=== PATIENT | female | born 1950 | race Caucasian/White ===

== ENCOUNTER 2019-05-06 17:18 | Emergency (ER) | payer OTHER ==
[2019-05-06] MEDS ORDERED: DOXYcycline CAP(*) 100 MG PO ONE (18:03)
--- NOTE | 2019-05-06 18:05 | ED ---
Skin Complaint - HPI Summary HPI Summary: 68-year-old female presents with tick bite today. States she is unsure how long the tick has been there. States she is unable to reach the tick to remove it. she has erythema around where the tick is present. She has no allergies to doxycycline. She has not tried to remove the tick. - History of Current Complaint Chief Complaint: EDGeneral Time Seen by Provider: 05/06/19 17:33 Stated Complaint: TICK IN LEFT LEG PER PT Pain Intensity: 0 - Allergy/Home Medications Allergies/Adverse Reactions: Allergies Allergy/AdvReac Type Severity Reaction Status Date / Time albuterol Allergy Coughing Verified 05/06/19 17:24 Home Medications: Home Medications Ramipril 1 tab PO DAILY 05/06/19 [History Confirmed 05/06/19] PMH/Surg Hx/FS Hx/Imm Hx Endocrine/Hematology History: Denies: Hx Anticoagulant Therapy Cardiovascular History: Denies: Hx Pacemaker/ICD Musculoskeletal History: Denies: Hx Osteoporosis - Cancer History Hx Chemotherapy: No Hx Radiation Therapy: No Infectious Disease History: No Infectious Disease History: Denies: Traveled Outside the [place] in Last 30 Days - Family History Known Family History: Positive: Non-Contributory - Social History Substance Use Type: Reports: None Smoking Status (MU): Never Smoked Tobacco Review of Systems Negative: Fever Negative: Chest Pain Negative: Shortness Of Breath Positive: Rash All Other Systems Reviewed And Are Negative: Yes Physical Exam Triage Information Reviewed: Yes Vital Signs On Initial Exam: Initial Vitals Temp Pulse Resp BP Pulse Ox 98.2 F 74 16 157/78 97 05/06/19 17:22 05/06/19 17:22 05/06/19 17:22 05/06/19 17:22 05/06/19 17:22 Vital Signs Reviewed: Yes Appearance: Positive: Well-Appearing Skin: Positive: Warm, Dry, Other - tick bite presents on left leg with surrouding erythema Head/Face: Positive: Normal Head/Face Inspection Eyes: Positive: Normal, Conjunctiva Clear ENT: Positive: Pharynx normal Respiratory/Lung Sounds: Positive: Clear to Auscultation, Breath Sounds Present Cardiovascular: Positive: Normal, RRR Musculoskeletal: Positive: Normal Neurological: Positive: Normal Psychiatric: Positive: Normal Diagnostics - Vital Signs Vital Signs Temp Pulse Resp BP Pulse Ox 05/06/19 17:22 98.2 F 74 16 157/78 97 - Laboratory Lab Statement: Any lab studies that have been ordered have been reviewed, and results considered in the medical decision making process. Course/Dx - Course Course Of Treatment: 68-year-old female presents with tick bite today. States she is unsure how long the tick has been there. States she is unable to reach the tick to remove it. she has erythema around where the tick is present. She has no allergies to doxycycline. She has not tried to remove the tick. - Differential Diagnoses - Skin Complaint Differential Diagnoses: Cellulitis, Other - tick bite, lyme - Diagnoses Provider Diagnoses: Tick bite Discharge - Sign-Out/Discharge Documenting (check all that apply): Patient Departure Patient Received Moderate/Deep Sedation with Procedure: No - Discharge Plan Condition: Good Disposition: HOME Patient Education Materials: Tick Bite (ED) Referrals: Renetta Zamorano MD [Primary Care Provider] - Additional Instructions: You have been prophylactically treated for Lyme disease Return to ED if develop any rash or signs of infection - Billing Disposition and Condition Condition: GOOD Disposition: Home
[2019-05-06 18:39] VITALS: BP 133/88
== END 2019-05-06 18:37 | disposition home or self-care (01) ==
LOC: ED 17:18
DX: S70.362A Insect bite (nonvenomous), left thigh, initial encounter (principal); W57.XXXA Bitten or stung by nonvenomous insect and other nonvenomous arthropods, initial encounter; Y92.9 Unspecified place or not applicable; Z88.8 Allergy status to other drugs, medicaments and biological substances
CPT/HCPCS: 99282; A9270-GY

== ENCOUNTER 2019-10-13 13:51 | Observation (INO) | payer MEDICARE ==
[2019-10-13] MEDS ORDERED: NS 0.9% 1000 ML** 1,000 ML IV ONE (14:02)
--- NOTE | 2019-10-13 14:06 | ED ---
Neurological HPI - HPI Summary HPI Summary: Paty monahan was called at 13:58, and pt was seen at 13:58. This patient is a 69 year old F presenting to [facility] with a chief complaint of a sensation on right side of face since 1200. She describes the sensation as numbness and tingling on the right side of the face. Pt has PMHx of HTN and a fib. Pt was not put on any medication for a fib. Pt took 81mg aspirin today. - History of Current Complaint Chief Complaint: EDNeurologicalDeficit Stated Complaint: "HEAD FEELS FUNNY " PER PT Time Seen by Provider: 10/13/19 13:58 Last Known Well Date: 12:00 Hx Obtained From: Patient Onset/Duration: Sudden Onset, Started hours ago, Still Present Timing: Constant Neurological Deficit Location: Facial Pain Intensity: 0 Pain Scale Used: 0-10 Numeric Character: Other: - sensation on right side of head Aggravating: Nothing Alleviating: Nothing - Allergy/Home Medications Allergies/Adverse Reactions: Allergies Allergy/AdvReac Type Severity Reaction Status Date / Time albuterol Allergy Coughing Verified 05/06/19 17:24 Home Medications: Home Medications Cholecalciferol TAB* [Vitamin D TAB*] 800 unit PO DAILY 10/13/19 [History Confirmed 10/13/19] Cyanocobalamin TAB* [Vitamin B12 TAB*] 500 mcg PO DAILY 10/13/19 [History Confirmed 10/13/19] PMH/Surg Hx/FS Hx/Imm Hx Endocrine/Hematology History: Denies: Hx Anticoagulant Therapy Cardiovascular History: Reports: Hx Atrial Fibrillation, Hx Hypertension Denies: Hx Pacemaker/ICD Musculoskeletal History: Denies: Hx Osteoporosis - Cancer History Hx Chemotherapy: No Hx Radiation Therapy: No Infectious Disease History: No Infectious Disease History: Denies: Traveled Outside the [place] in Last 30 Days - Family History Known Family History: Positive: Hypertension - Social History Alcohol Use: Daily Substance Use Type: Reports: None Smoking Status (MU): Never Smoked Tobacco Review of Systems Negative: Fever Positive: Numbness - right side of face All Other Systems Reviewed And Are Negative: Yes Physical Exam - Summary Physical Exam Summary: NEURO EXAM VITAL SIGNS: Reviewed. GENERAL: Patient is a well-developed and nourished female who is lying comfortable in the stretcher. Patient is not in any acute respiratory distress. HEAD AND FACE: No signs of trauma. No ecchymosis, hematomas or skull depressions. No sinus tenderness. EYES: PERRLA, EOMI x 2, No injected conjunctiva, no nystagmus. No photophobia. EARS: Hearing grossly intact. Ear canals and tympanic membranes are within normal limits. MOUTH: Oropharynx within normal limits. NECK: Supple, trachea is midline, no adenopathy, no JVD, no carotid bruit, no c- spine tenderness, neck with full ROM. No meningeal signs, no Kernig's or brudzinskis signs. CHEST: Symmetric, no tenderness at palpation. LUNGS: Clear to auscultation bilaterally. No wheezing or crackles. CVS: Regular rate and rhythm, S1 and S2 present, no murmurs or gallops appreciated. ABDOMEN: Soft, non-tender. No signs of distention. No rebound, no guarding, and no masses palpated. Bowel sounds are normal. EXTREMITIES: FROM in all major joints, no edema, no cyanosis or clubbing. NEURO: Decreased sensation on right side of the face. Alert and oriented x 3. No acute neurological deficits. Speech is normal and follows commands. SKIN: Dry and warm. GCS: 15 Triage Information Reviewed: Yes Vital Signs On Initial Exam: Initial Vitals Temp Pulse Resp BP Pulse Ox 98.2 F 70 16 214/107 96 10/13/19 13:53 10/13/19 13:53 10/13/19 13:53 10/13/19 13:53 10/13/19 13:53 Vital Signs Reviewed: Yes - Jennifer Coma Scale Best Eye Response: 4 - Spontaneous Best Motor Response: 6 - Obeys Commands Best Verbal Response: 5 - Oriented Coma Scale Total: 15 Procedures - Sedation Patient Received Moderate/Deep Sedation with Procedure: No Diagnostics - Vital Signs Vital Signs Temp Pulse Resp BP Pulse Ox 10/13/19 13:53 98.2 F 70 16 214/107 96 - Laboratory Result Diagrams: 10/13/19 14:20 10/13/19 14:20 Lab Statement: Any lab studies that have been ordered have been reviewed, and results considered in the medical decision making process. - Radiology CXR Radiology Interpretation Completed By: Radiologist Summary of Radiographic Findings: CXR reveals, per radiologist, IMPRESSION: No radiographic evidence for acute cardiopulmonary abnormality on this portable chest x-ray. ED physician has reviewed this radiology report. - CT Brain CT CT Interpretation Completed By: Radiologist Summary of CT Findings: Brain CT reveals, per radiologist, IMPRESSION: Normal CT of the brain. ED physician has reviewed this radiology report. - EKG 15:28 Cardiac Rate: Bradycardia EKG Rhythm: Sinus Rhythm Summary of EKG Findings: An EKG at 15:28 reveals sinus bradycardia rhythm 57. No ST-elevations ED physician has interpreted this EKG. NIH Scale - NIH Scale Level of Consciousness: Alert/Keenly Responsive Ask Patient the Month and His/Her Age: Both Correct Ask Pt to Open/Close Eyes and Feeder Operator Automatic/Release Non-Paretic Hand: Both Correctly Best Gaze (Only Horizontal Eye Movement): Normal Visual Field Testing: No Visual Loss Facial Paresis-Pt to Smile & Close Eyes or Grimace Symmetry: Normal/Symmetrical Motor Function - Right Arm: No Drift-Holds 10 Seconds Motor Function - Left Arm: No Drift-Holds 10 Seconds Motor Function - Right Leg: No Drift-Holds 10 Seconds Motor Function - Left Leg: No Drift-Holds 10 Seconds Limb Ataxia-Must be out of Proportion to Weakness Present: Absent Sensory (Use Pinprick to Test Arms/Legs/Trunk/Face): Pinprick Less on Affected Best Language (Describe Picture, Name Items): No Aphasia Dysarthria (Read Several Words): Normal Extinction and Inattention: No Abnormality Total Score: 1 Re-Evaluation - Re-Evaluation First Eval Re-Evaluation Time: 02:15 Comment: Telestroke consult machine does not work Second Eval Re-Evaluation Time: 15:25 Comment: The patient is hemodynamically stable alert and oriented 3. Course/Dx - Course Assessment/Plan: This patient is a 69-year-old female who presents to the emergency department with a chief complaint of right facial numbness and tingling since 1200. Patient reports that she has a history of hypertension and atrial fibrillation and she is not taking any blood thinners or aspirin. However she took one aspirin 81 mg before she came to the emergency room. Paty chamberlain was called by triage. NIH score is equal to 1. Discussed the case with Dr. Hampton neurologist from [facility], and she recommends no TPA this point since the NIH score is only equal to 1. However she will do the Telestroke at this time. Head CT impression: Negative for acute pathology. After Dr. Hampton completed her assessment she recommends no TPA, and no CTA at this time. She doesnt think that the patient has an LVO. She does recommend for the patient to be admitted to the hospital services and to perform a non emergent MRI, carotid ultrasound, echocardiogram, lipid profile in the morning and to give a complete dose of aspirin. Therefore I discussed my physical exam and findings with Dr. Willis who accepted the patient for admission. The patient is hemodynamically stable alert and oriented 3. - Diagnoses Provider Diagnoses: Transient ischemic attack During the Visit The Following Alert/Code Occurred: Code Monahan - 13:58 - Physician Notifications Discussed Care Of Patient With: Dr. Hampton Time Discussed With Above Provider: 14:04 Instructed by Provider To: Other - Spoke with transfer center; 14:08 Dr. Hampton , from stroke services, b/c NIH score is 1 she would not recommend a TPA at this time, but she would do the telestroke. 14:18 Dr Morgan reports Head CT is negative; 15:17 Dr Hampton, recommends no TPA, recommend a MRI, Ultra Sound, ECHO, but no CTA since she doesnt think pt has an LVO; 15:[address] Willis who accepts pt for admission. Discharge ED - Sign-Out/Discharge Documenting (check all that apply): Patient Departure - Admit - Discharge Plan Condition: Stable Disposition: ADMITTED TO [facility] - Billing Disposition and Condition Condition: STABLE Disposition: Admitted to [facility] - Attestation Statements Document Initiated by Shrutiibe: Yes Documenting Scribe: Renae Do Provider For Whom Verónica is Documenting (Include Credential): Oswaldo Velazquez MD Scribe Attestation: Renae Miller scribed for Oswaldo Velazquez MD on 10/13/19 at 1835. Scribe Documentation Reviewed: Yes Provider Attestation: The documentation as recorded by the Renae florez accurately reflects the service I personally performed and the decisions made by me, Oswaldo Velazquez MD Status of Scribe Document: Viewed
[2019-10-13 14:41] LABS: ABS Lymphocytes 1.7 10^3/ul (1.0-4.8); ABS Monocytes 0.3 10^3/ul (0-0.8); ABS Neutrophils 2.9 10^3/ul (1.5-7.7); Eosinophil % 0.4 %; Hematocrit 44 % (35-47); Hemoglobin 14.8 g/dL (12.0-16.0); Lymphocyte % 35.1 %; Mean Corpuscular HGB Conc 34 g/dL (31-36); Mean Corpuscular Hemoglobin 32 pg (27-31); Mean Corpuscular Volume 93 fL (80-97); Mean Platelet Volume 7.7 fL (7.4-10.4); Nucleated Red Blood Cells % 0.1; Platelet Count 183 10^3/uL (150-450); Red Blood Count 4.69 10^6 /uL (3.70-4.87); Red Cell Distribution Width 13 % (10-15)
[2019-10-13 15:00] LABS: Activated Partial Thrombo Time 32.3 seconds (26.0-38.0); INR 0.92 (0.82-1.09)
[2019-10-13 15:24] LABS: Albumin 4.3 g/dL (3.2-5.2); Albumin/Globulin Ratio 1.9 (1-3); BUN/Creatinine Ratio 12.4 (8-20); Calcium 9.4 mg/dL (8.6-10.3); EGFR African American 69.3 (>60); EGFR Non-African American 57.3 (>60); Globulin 2.3 g/dL (2-4); HDL Cholesterol 86.6 mg/dL; Potassium 3.8 mmol/L (3.5-5.0); Total Bilirubin 0.5 mg/dL (0.2-1.0); Total Protein 6.6 g/dL (6.4-8.9)
[2019-10-13] MEDS ORDERED: Aspirin 81 mg CHEW TAB* 81 MG TAB.CHEW PO ONE (15:25)
--- OUTSIDE RECORDS SUMMARY | 2019-10-13 15:40 | XMS REPORT | Continuity of Care Document ---
:1950 External Reference #:[id number] Author Name Patricia Manley O.D. Address [address] [place] [address] Care Team Providers Name Role Phone Kris Cole M.D. - Internal Care Team Information Virtualization Engineer [phone] Medicine Renetta Zamorano MD/FACP - Internal Care Team Information Virtualization Engineer Medicine Problems Active Problems Provider Date Asthma Onset: Nuclear senile cataract Patricia Manley O.D. Onset: 01/03/2017 Myopia Patricia Manley O.D. Onset: 01/03/2017 Regular astigmatism Patricia Manley O.D. Onset: 01/03/2017 Presbyopia Patricia Manley O.D. Onset: 01/03/2017 Tear film insufficiency Patricia Manley O.D. Onset: 09/14/2018 Chalazion Patricia Manley O.D. Onset: 04/04/2019 Social History Type Date Description Comments Sex Unknown ETOH Use Consumes 1-2 glasses of wine per day Tobacco Use Start: Unknown End: Patient is a former smoked in 20s, early Unknown smoker 30s Recreational Drug Use Denies Drug Use Smoking Status Reviewed: 09/14/19 Patient is a former smoked in 20s, early smoker 30s Allergies, Adverse Reactions, Alerts Active Allergies Reaction Severity Comments Date Perfume 01/03/2017 Albuterol Moderate Coughing 09/14/2018 Medications Active Medications SIG Qnty Indications Ordering Provider Date Aspirin Adult Low Dose daily Unknown 81mg Tablets DR Ramipril 1X/Day Unknown 1.25mg Capsules Vitamin D-400 2 Pills 1X/Day Unknown 400Unit Tablets HM Vitamin B12 1X/Day Unknown 500mcg Tablets Magnesium as Needed Unknown 500mg Capsules Naproxen as Needed Unknown 250mg Tablets History Medications Erythromycin apply thin 2tubes H00.14 Patricia Jasso 04/04/2019 - 5mg/GM strip in both Ely Manley 09/13/2019 Ointment eyes and rub into lids every night for 2 weeks Immunizations Description No Information Available Vital Signs Description No Information Available Results Description No Information Available Procedures Date Code Description Status 04/04/2019 66052 Est Patient Intermediate Exam Completed Medical Devices Description No Information Available Encounters Description No Information Available Assessments Date Code Description Provider 09/14/2019 H25.13 Age-related nuclear cataract, bilateral Patricia Manley O.D. 09/14/2019 H04.123 Dry eye syndrome of bilateral lacrimal Patricia Manley O.D. glands 04/04/2019 H00.14 Chalazion left upper eyelid Patricia Manley O.D. Plan of Treatment 09/14/2019 - Patricia Manley O.D.H25.13 Age-related nuclear cataract, bilateralComments:You have been diagnosed with cataracts. If you are happy with your vision as it is now, then we willsee you at your next scheduled appointment. If you feel like your vision is getting worse before your scheduled appointment, please call [facility] at [phone].Follow up:1 Year Follow Up You can expect to have your eyes dilated at your next visit. If Dr. Manley orders any additional testing, it may require extra time. We recommend that you bring sunglasses, as dilation drops often make you light sensitive until they wear off. We always recommend you bring someone to drive you home if you are uncomfortable driving with your eyes dilated. If you have any questions before your next visit, feel free to call our office at .H04.123 Dry eye syndrome of bilateral lacrimal glandsComments:Smoking can increase the risk of developing or worsening any eye related disease, as well as affect your overall health. If you are a smoker, we strongly recommend that you quit.If you are not a smoker, we strongly recommend that you do not start. CONTINUE TO USE ARTIFICIAL TEARS NEEDEDUSE A HOT COMPRESS FOR 5-10 MINUTES Functional Status Description No Information Available Mental Status Description No Information Available Referrals Description No Information Available
--- OUTSIDE RECORDS SUMMARY | 2019-10-13 15:40 | XMS REPORT | Continuity of Care Document ---
:1950 External Reference #:[id number] Author Name Aidan García M.D. (transmitted by agent of provider Krystyna Uribe) Address [facility] [address] [place] [address] Care Team Providers Name Role Phone Patient's Choice Care Team Information Cartridge Filler Unavailable Raine Díaz MD - Internal Care Team Information Cartridge Filler [phone] Medicine Problems Active Problems Provider Date Benign essential hypertension Cristiano Cole M.D.,FACP Onset: 10/06/2007 Mild intermittent asthma Cristiano Cole M.D.,FACP Onset: 02/17/2017 Ex-smoker Cristiano Cole M.D.,FACP Onset: 03/14/2018 Contusion of knee Luis Hopkins MD Onset: 05/22/2019 Social History Type Date Description Comments Sex Unknown Tobacco Use Start: Unknown End: Former Cigarette Smoker Unknown Smoking Status Reviewed: 10/08/19 Former Cigarette Smoker ETOH Use 02/17/2017 Consumes 7 glasses of 7-14 glasses wine per week Tobacco Use Start: 11/28/71 End: Patient is a former about 1/2-1PPD 11/28/91 smoker Recreational Drug Use 02/17/2017 Denies Drug Use Exercise Type/Frequency 02/17/2017 Exercises rarely Allergies, Adverse Reactions, Alerts Active Allergies Reaction Severity Comments Date Albuterol Moderate coughing fits 02/17/2017 Medications Active Medications SIG Qnty Indications Ordering Provider Date Vitamin D 2 by mouth every 90caps Cristiano Cole, 03/14/2018 (Cholecalciferol) day Yevgeniy,FACP 400Unit Capsules Ramipril 1 by mouth every 90caps Cristiano Cole, 08/17/2017 1.25mg day M.D.,FACP Capsules Magnesium 1 by mouth every Unknown 250mg Tablets day prn for cramps Flax Seeds 1 by mouth every Unknown Powder day prn Vitamin B-12 1 by mouth every Unknown 500mcg day Tablets Sub Immunizations CPT Code Status Date Vaccine Reaction Lot # [id number] Given 08/29/2018 Influenza Virus Vaccine, please see attached - Quadrivalent, Split, pt received at pharm Preservative Free 75574 Given 07/18/2018 Zoster (Shingles) Vaccine (HZV), Recombinant, Subunit, Adjuvanted 92856 Given 03/30/2018 Zoster (Shingles) Vaccine (HZV), Recombinant, Subunit, Adjuvanted 22737 Given 08/29/2017 Influenza Virus Vaccine, [id number] Quadrivalent, Split, Preservative Free 68567 Given 05/17/2017 Pneumococcal Conjugate [id number] Vaccine 13 Valent For Intramuscular Use 21796 Given Unknown Influ Virus Vaccine, Quadrivalent, Split Virus, Im Fluzone not PF Vital Signs Date Vital Result Comment 10/08/2019 8:35am Height 61 inches 5'1" Weight 162.00 lb Heart Rate 66 /min BP Systolic Sitting 176 mmHg Rue reg cuff BP Diastolic Sitting 96 mmHg Rue reg cuff BP Systolic Standing 172 mmHg Rue reg cuff BP Diastolic Standing 100 mmHg Rue reg cuff Respiratory Rate 13 /min BMI (Body Mass Index) 30.6 kg/m2 Ejection Fraction 60-65% ECHO 09/05/2019 08/29/2019 1:00pm Height 61 inches 5'1" Weight 165.00 lb without shoes BP Systolic 130 mmHg LA BP Diastolic 60 mmHg LA BP Systolic Sitting 130 mmHg Ra BP Diastolic Sitting 62 mmHg Ra BP Systolic Standing 132 mmHg Ra BP Diastolic Standing 70 mmHg Ra BMI (Body Mass Index) 31.2 kg/m2 Ejection Fraction None Results Test Acquired Date Facility Test Result H/L Range Note Lipid Profile 05/01/2019 [facility] Triglycerides 60 mg/dL 1 (Trig/Chol/HDL) [address] [place] [address] [phone] Cholesterol 280 mg/dL 2 HDL Cholesterol 106.7 mg/dL 3 LDL Cholesterol 161 mg/dL 4 Laboratory test 05/01/2019 [facility] Glucose 100 mg/dL Normal 70-100 finding [address] [facility] [place] [address] [phone] 1 Desirable: <150 Borderline High: 150-199 High: 200-499 Very High: >500 2 Desirable: <200 Borderline High: 200-239 High: >239 3 Low: <40 Desirable: 40-60 High: >60 4 Desirable: <100 Near Optimal: 100-129 Borderline High: 130-159 High: 160-189 Very High: >189 Procedures Date Code Description Status 09/28/2019 02571 Stress Test Completed 09/05/2019 98869 ECHO Transthoracic, Real-Time 2D With Doppler And Completed Color Flow 09/05/2019 35881 ECHO Transthoracic, Real-Time 2D With Doppler And Completed Color Flow 08/29/2019 40693 EKG Tracing & Interpretation Completed 03/21/2018 [id number] Bone Mineral Density Test Completed 06/13/2017 [id number] Colonoscopy Completed 05/20/2017 [id number] Mammogram Completed Medical Devices Description No Information Available Encounters Type Date Location Provider Dx Diagnosis Office Visit 09/07/2019 [facility] Marc Cotter MD L82.1 Other seborrheic 11:30a keratosis D22.5 Melanocytic nevi of trunk D22.61 Melanocytic nevi of right upper limb, including shoulder D22.62 Melanocytic nevi of left upper limb, including shoulder B07.0 Plantar wart Office Visit 08/29/2019 1:00p [facility] Aidan Torres R00.2 Palpitations Of Tania García M.D. R01.1 Cardiac murmur, unspecified R06.02 Shortness of breath Office Visit 05/22/2019 9:30a [facility] Luis Hopkins, S80.02xA Contusion of at Carlos WATKINS left knee, initial encounter Assessments Date Code Description Provider 10/08/2019 R00.2 Palpitations Aidan García M.D. 10/08/2019 I48.0 Paroxysmal atrial fibrillation Aidan García M.D. 09/28/2019 R00.2 Palpitations Aidan García M.D. 09/07/2019 L82.1 Other seborrheic keratosis Marc Cotter MD 09/07/2019 D22.5 Melanocytic nevi of trunk Marc Cotter MD 09/07/2019 D22.61 Melanocytic nevi of right upper limb, Marc Cotter MD including shoulder 09/07/2019 D22.62 Melanocytic nevi of left upper limb, Marc Cotter MD including shoulder 09/07/2019 B07.0 Plantar wart Marc Cotter MD 09/05/2019 R00.2 Palpitations Aidan García M.D. 09/05/2019 R00.2 Palpitations Ica ECHO Schedule 08/29/2019 R00.2 Palpitations Aidan García M.D. 08/29/2019 R01.1 Systolic murmur Aidan García M.D. 08/29/2019 R06.02 Dyspnea on exertion Aidan García M.D. 05/22/2019 S80.02xA Contusion of left knee, initial encounter Luis Hopkins MD 05/10/2019 Z00.00 Encounter for general adult medical Renetta Zamorano MD examination without abno 05/10/2019 I10 Essential (primary) hypertension Renetta Zamorano MD Plan of Treatment Future Appointment(s):02/06/2020 8:45 am - Aidan García M.D. at [facility]10/08/2019 - Aidan García M.D.R00.2 PalpitationsFollow up: 4 mkwdioW52.0 Paroxysmal atrial fibrillation Functional Status Description No Information Available Mental Status Description No Information Available Referrals Description No Information Available
--- OUTSIDE RECORDS SUMMARY | 2019-10-13 15:40 | XMS REPORT | Continuity of Care Document ---
:1950 External Reference #:[id number] Author Name Aidan García M.D. (transmitted by agent of provider Krystyna Uribe) Address [facility] [address] [facility] [place] [address] Care Team Providers Name Role Phone Patient's Choice Care Team Information Dike Supervisor Unavailable Raine Díaz MD - Internal Care Team Information Dike Supervisor [phone] Medicine Problems Active Problems Provider Date Benign essential hypertension Cristiano Cole M.D.,FACP Onset: 10/06/2007 Mild intermittent asthma Cristiano Cole M.D.,FACP Onset: 02/17/2017 Ex-smoker Cristiano Cole M.D.,FACP Onset: 03/14/2018 Contusion of knee Luis Hopkins MD Onset: 05/22/2019 Social History Type Date Description Comments Sex Unknown Tobacco Use Start: Unknown End: Former Cigarette Smoker Unknown Smoking Status Reviewed: 08/29/19 Former Cigarette Smoker ETOH Use 02/17/2017 Consumes [...] Code Status Date Vaccine Reaction Lot # [id number] Given 08/29/2018 Influenza Virus Vaccine, please see attached - Quadrivalent, Split, pt received at pharm Preservative Free 05338 Given 07/18/2018 Zoster (Shingles) Vaccine (HZV), Recombinant, Subunit, Adjuvanted 34915 Given 03/30/2018 Zoster (Shingles) Vaccine (HZV), Recombinant, Subunit, Adjuvanted 17999 Given 08/29/2017 Influenza Virus Vaccine, [id number] Quadrivalent, Split, Preservative Free 56737 Given 05/17/2017 Pneumococcal Conjugate [id number] Vaccine 13 Valent For Intramuscular Use 05714 Given Unknown Influ Virus Vaccine, Quadrivalent, Split Virus, Im Fluzone not PF Vital Signs Date Vital Result Comment 08/29/2019 1:00pm Height 61 inches 5'1" Weight 165.00 lb without shoes BP Systolic 130 mmHg LA BP Diastolic 60 mmHg LA BP Systolic Sitting 130 mmHg Ra BP Diastolic Sitting 62 mmHg Ra BP Systolic Standing 132 mmHg Ra BP Diastolic Standing 70 mmHg Ra BMI (Body Mass Index) 31.2 kg/m2 Ejection Fraction None 05/22/2019 9:54am Height 61 inches 5'1" Weight 166.00 lb Heart Rate 73 /min BP Systolic 130 mmHg BP Diastolic 68 mmHg Body Temperature 97.6 F Pain Level 3 BMI (Body Mass Index) 31.4 kg/m2 Results Test Date Facility Test Result H/L Range Note Lipid Profile 05/01/2019 [facility] Triglycerides 60 mg/dL 1 (Trig/Chol/HDL) [address] [place] [address] [phone] Cholesterol 280 mg/dL 2 HDL Cholesterol 106.7 mg/dL 3 LDL Cholesterol 161 mg/dL 4 Laboratory test 05/01/2019 [facility] Glucose 100 mg/dL Normal 70-[address] [place] [address] [phone] Desirable: <150 Borderline High: 150-199 High: 200-499 Very High: >500 2 Desirable: <200 Borderline High: 200-239 High: >239 3 Low: <40 Desirable: 40-60 High: >60 4 Desirable: <100 Near Optimal: 100-129 Borderline High: 130-159 High: 160-189 Very High: >189 Procedures Date Code Description Status 08/29/2019 00379 EKG Tracing & Interpretation Completed 03/21/2018 922473557 Bone Mineral Density Test Completed 06/13/2017 79565236 Colonoscopy Completed 05/20/2017 11826671 Mammogram Completed Medical Devices Description No Information Available Encounters Type Date Location Provider Dx Diagnosis Office Visit 05/22/2019 [facility] Luis Hopkins MD S80.02xA Contusion of 9:30a at [facility] left knee, initial encounter Assessments Date Code Description Provider 08/29/2019 R00.2 Palpitations Aidan García M.D. 08/29/2019 R01.1 Systolic murmur Aidan García M.D. 08/29/2019 R06.02 Dyspnea on exertion Aidan García M.D. 05/22/2019 S80.02xA Contusion of left knee, initial encounter Luis Hopkins MD 05/10/2019 Z00.00 Encounter for general adult medical Renetta Zamorano MD examination without abno 05/10/2019 I10 Essential (primary) hypertension Renetta Zamorano MD Plan of Treatment Future Appointment(s):09/05/2019 2:00 pm - Ica ECHO Schedule at [facility]10/12/2019 12:00 pm - Aidan García M.D. at [facility]09/28/2019 7:45 am - Ica ECHO Schedule at [facility]09/28/2019 8:15 am - Aidan García M.D. at [facility] 11:30 am - Marc Cotter MD at [facility]08/29/2019 - Aidan García M.D.R00.2 PalpitationsNew Orders:Stress Test, Treadmill, No Imaging, Scheduled: 09/28/19Echocardiogram, Scheduled: 09/05/19Event Monitor, Ordered: Follow up:1 hqkleJ12.1 Systolic rpekhyG95.02 Dyspnea on exertion Functional Status Description No Information Available Mental Status Description No Information Available Referrals Description No Information Available
[2019-10-13 16:03] LABS: Urine Appearance Clear; Urine Color Straw
[2019-10-13 16:04] LABS: Urine Blood Negative (Negative); Urine Ketones Negative (Negative); Urine Protein Negative (Negative); Urine Specific Gravity 1.005 (1.010-1.030); Urine Urobilinogen Negative (Negative)
[2019-10-13 16:05] LABS: Urine Bilirubin Negative (Negative); Urine Glucose Negative (Negative); Urine Nitrite Negative (Negative)
[2019-10-13] MEDS ORDERED: Ondansetron INJ* 2 MG/ML VIAL IV PRN (16:44)
[2019-10-13] MEDS ORDERED: Acetaminophen TAB* 325 MG PO PRN (16:44)
[2019-10-13] MEDS ORDERED: Iodixanol* (CONTRAST) 320 MG/ML 100 ML SDV IV ONE (17:38)
[2019-10-13] MEDS ORDERED: Potassium Chlor TAB* 20 MEQ TAB.ER PO ONE (18:03)
[2019-10-13] MEDS: Atorvastatin* 40 MG TAB PO SCH (19:28)
[2019-10-13] MEDS: Heparin VIAL(*) 5000 UNITS/ML VIAL (FIVE THOUSAND) SUBCUT SCH (20:01)
--- NOTE | 2019-10-13 21:03 | HP ---
CC: Dr. García * MEDICINE HISTORY AND PHYSICAL: DATE OF ADMISSION: 10/13/19 PRIMARY CARE PHYSICIAN: Dr. García. PROVIDER: Abrahan Cole NP ATTENDING PHYSICIAN: Dr. Gabo Willis * (dictated by Abrahan Cole NP). CONSULTING PROVIDERS: Dr. Alyssa Hampton, [facility]; Dr. Reynaldo Blanco, [facility]. CHIEF COMPLAINT: Numbness and tingling to right face and hand. HISTORY OF PRESENT ILLNESS: Ms. Carr is a 69-year-old female, who is in her usual state of health, stating "she felt great this morning." Around 12 o'clock , she noticed some numbness and tingling in her right face and her right hand that was followed by dizziness. She presented to the ER, a Code Kaufman was called at 1358 and stroke protocol was activated. Her CT was found to be negative. Her initial NIH Stroke Score was 1. She was seen in consultation by the [facility] team and was recommended to have an MRI, echo , and further stroke workup. She was not indicated to have tPA. Currently, she reports some residual numbness to the face and hands that has not worsened. Her dizziness has resolved. She reports that she was recently diagnosed with atrial fibrillation this week, endorses a history of palpitations intermittently for the past couple of months. She has undergone evaluation with Dr. García and states that he did not start her on any medications and told her that she is okay to continue with her regular medications of ramipril and vitamin B and B12 supplements. Just after her episode, she took an aspirin 81 mg, but does not take this regularly. PAST MEDICAL HISTORY: 1. Hypertension. 2. Recently diagnosed paroxysmal atrial fibrillation. 3. Mild intermittent asthma triggered by allergies and strong fragrances. 4. History of breast implants. HOME MEDICATIONS: 1. Ramipril 1.25 mg p.o. daily. 2. Vitamin D 800 mg daily. 3. Cyanocobalamin 500 mcg daily. ALLERGIES: Include ALBUTEROL and . FAMILY HISTORY: She reports history of coronary artery disease in her parents. Her father had prostate cancer and her mother had lung cancer. SOCIAL HISTORY: She endorses a history of smoking x20 years, she quit approximately 27 years ago. She endorses daily alcohol use, reporting usual glass of wine every evening. Denies any drug use. She is a retired worker. She used to work at [employer]. Her son, Barak Carr, who also goes by Krishan, is her surrogate decision maker in the event of emergency. REVIEW OF SYSTEMS: A 14-point review of systems was completed. In addition to above, she reports that she had previously had palpitations and dyspnea and fatigue with prolonged exertion, but this has been improving. Other pertinent positives and negatives as per HPI. PHYSICAL EXAMINATION GENERAL: This is a well-developed, pleasant, 69-year-old female lying in ED stretcher, in no acute distress. VITAL SIGNS: Temperature 97.8, heart rate 60, respiratory rate 20, blood pressure 133/84, and O2 saturation 100% on room air. HEENT: Head is atraumatic, normocephalic. Pupils are equal, round, and reactive to light and accommodation. Extraocular movements are intact. Oral mucosa is moist. There is no facial drooping noted. NECK: Supple with full range of motion. No lymphadenopathy appreciated. No JVD noted. No carotid bruits auscultated. LUNGS: Clear to auscultation bilaterally. No wheezing, rales, or rhonchi. CARDIOVASCULAR: Normal S1, S2 heart sounds. Regular rate and rhythm. No murmurs appreciated. No peripheral edema noted. Distal pulses are 2+ and present symmetrically in the radial and pedal pulses. ABDOMEN: Soft, nontender, nondistended with normoactive bowel sounds. EXTREMITIES: With no clubbing or cyanosis. There is full range of motion in all 4 extremities. NEUROLOGIC: She is alert and oriented x4. Speech is clear. There is decreased sensation on the right side of her face. There is no pronator drift. Rida-ui-qeap is intact. SKIN: Warm and dry. DIAGNOSTIC STUDIES/LAB DATA: CBC: WBC 5.0, hemoglobin 14.8, hematocrit 44, platelet count 183. CMP: Sodium 139, potassium 3.8, chloride 104, carbon dioxide 28, BUN 12, creatinine 0.97, glucose 105, lactic acid 1.0, calcium 9.4, magnesium 2.0. Total bilirubin 0.5, AST 16, ALT 11, alk phos 57. Troponin 0.00. Albumin 4.3. Triglycerides 89, cholesterol 252, LDL 148, HDL 86. EKG shows sinus bradycardia with no ST elevations or T-wave inversions. CT of the brain again without acute pathology and old medical records were reviewed. ASSESSMENT AND PLAN: This is a 69-year-old female with a history significant for hypertension and newly diagnosed paroxysmal atrial fibrillation, who presents today with concern for right-sided numbness and tingling to the face and hand. She will be admitted under OBV status for further evaluation. Plan is as follows: 1. Right-sided numbness in the face and hands, concerning for transient ischemic attack versus cerebrovascular accident. She will be admitted to telemetry with neuro checks q.4 hours and we will allow for permissive hypertension with a goal of systolic blood pressure less than 180. She is recommended to have Dopplers of the carotids; however, this will not be able to be completed until Tuesday, so we will change that to CT of head and neck per Dr. Blanco's recommendation. Additionally, she is ordered echo with bubble study and MRI without contrast. Per Dr. Hampton, we will start aspirin 325 mg and atorvastatin 40 mg and recheck a fasting lipid and A1c of the patient. She is ordered PT/OT and swallow eval and Dr. Blanco will see her in consultation tomorrow. She did not receive tPA after exam, was noted to not be consistent with large vessel occlusion. She does have concerns for increased risk given her CHADS2-VASc score is currently at 5 and she is recommended to consider anticoagulation, but this should not be considered until after the MRI is done in order to evaluate potential stroke burden. 2. Paroxysmal atrial fibrillation. Currently is in sinus rhythm. She is not on any rate controlling agents. She is not on antiarrhythmics. Continue to monitor on telemetry. I will check electrolytes and replete with the goal of keeping potassium above 4 and magnesium above 2. 3. Hypertension. Again, allowing the permissive hypertension in the presence of potential cerebrovascular accident, she is currently normotensive, we will hold her home ramipril. 4. FEN: She is ordered heart healthy diet. 5. DVT prophylaxis: Subcu heparin. 6. Code status: She is a full code. TIME SPENT: Approximately 60 minutes was spent on this admission with more than half that time spent [id number]-[id number] with the patient obtaining history and physical, performing physical exam, and reviewing the plan of care. Plan of care was also reviewed with my attending, Dr. Willis, who is in agreement. ABRAHAN COLE, GEAR HOBBER [id number]/[facility] #: [id number] MARGOTH
[2019-10-14] MEDS: Heparin VIAL(*) 5000 UNITS/ML VIAL (FIVE THOUSAND) SUBCUT SCH ×3 (05:19→21:07)
[2019-10-14 06:34] LABS: BUN/Creatinine Ratio 10.3 (8-20); Calcium 9.1 mg/dL (8.6-10.3); EGFR African American 78.6 (>60); EGFR Non-African American 64.9 (>60); HDL Cholesterol 82.1 mg/dL; Potassium 4.1 mmol/L (3.5-5.0)
[2019-10-14] MEDS: Cyanocobalamin TAB* 500 MCG PO SCH (08:52)
[2019-10-14] MEDS: Cholecalciferol TAB* 400 UNIT PO SCH (08:52)
[2019-10-14] MEDS: Aspirin TAB* 325 MG PO SCH (08:52)
--- NOTE | 2019-10-14 11:02 | ECHO ---
*[facility]* [place] [address] Fax #: [phone] Transthoracic Echocardiogram Patient: Lizett Carr : 1950 Study Date: 10/14/2019 Age: 69 Gender: F HR: 55 bpm Height: 61 in /154.9 cm BSA: 1.73 m^2 Weight: 161.7 lb /73.5 kg BMI: 30.6 kg/m^2 *Hand Hide Stretcher: * Lima Man RDCS RN *Referring Physician: * Leonora Quick *Reading Physician: * Jesse Junior MD Indications: TIA. History: Paroxysmal Atrial fibrillation. Asthma. Breast implants. Risk factors: Former tobacco use. Hypertension. Conclusions Summary: - Left ventricle: The cavity size is normal. Wall thickness is mildly increased. Systolic function is normal. The estimated ejection fraction is 55-60%. - Atrial septum: No defect or patent foramen ovale is identified. - Mitral valve: There is trace to mild regurgitation. - Tricuspid valve: There is trace to mild regurgitation. - No previous echocardiogram available. Study data: Transthoracic echocardiogram. Procedure: Transthoracic echocardiography was performed. Image quality was fair. The study was technically limited due to breast implants. Intravenous agitated saline was administered. A bubble study was performed. Complete 2D, spectral Doppler, and color flow Doppler. Location: Bedside. Patient status: Observation. Patient room number: 444-02. Rhythm: Bradycardia. Findings Left ventricle: The cavity size is normal. Wall thickness is mildly increased. Systolic function is normal. The estimated ejection fraction is 55-60%. Wall motion is normal; there are no regional wall motion abnormalities. There is no consistent Doppler evidence of clinically significant diastolic dysfunction. Right ventricle: The cavity size is normal. Systolic function is normal. Left atrium: The atrium is mildly dilated. Right atrium: The atrium is normal in size. Atrial septum: No defect or patent foramen ovale is identified. Bubble study was negative on Images 86 and 87. Mitral valve: The leaflets are mildly thickened. There is no evidence of stenosis. There is trace to mild regurgitation. Aortic valve: The leaflets are mildly thickened. There is no evidence of stenosis. There is no significant regurgitation. Tricuspid valve: The valve is structurally normal. There is no evidence of stenosis. There is trace to mild regurgitation. Pulmonic valve: Not well visualized. There is no significant regurgitation. Aorta: Aortic root: The aortic root is not dilated. Ascending aorta: The ascending aorta is not dilated. Aortic arch: The aortic arch is not dilated. Pericardium: There is no pericardial effusion. Pulmonary arteries: The main pulmonary artery is normal-sized. Systolic pressure is within the normal range, estimated to be 26 mm Hg. Systemic veins: Inferior vena cava: The vessel is normal in size. There is (>= 50%) respiratory change in the IVC dimension. Measurements Left ventricle Value Ref Aortic valve Value Ref ASMITA, LAX 3.9 cm 3.8 - 5.2 Vikram diam, ED 1.8 cm ---- ESD, LAX 2.6 cm 2.2 - 3.5 Peak v, S 1.47 m/sec ---- FS, LAX 33 % 27 - 45 VTI, S 38.8 cm ---- PW, ED (H) 1.1 cm 0.6 - 0.9 Mean grad, S 6.0 mm Hg ---- IVS/PW, ED 0.95 Peak grad, S 9.0 mm Hg ---- E', lat vikram, TDI (L) 7.3 cm/sec >=10.0 LVOT/AV, VTI ratio 0.73 --- - E/e', lat vikram, 14 TDI Mitral valve Value Ref E', med vikram, TDI 7.2 cm/sec >=7.0 Peak E 1.01 m/sec --- - E/e', med vikram, 14 Peak A 0.97 m/sec ---- TDI Decel time 162 ms ---- E', avg, TDI 7.3 cm/sec Peak grad, D 4.1 mm Hg ---- E/e', avg, TDI 14 <=14 Peak E/A ratio 1 --- - LVOT Value Ref Pulmonic valve Value Ref Peak chaparrita, S 1.22 m/sec Peak v, S 0.52 m/sec ---- VTI, S 28.5 cm Peak grad, S 1.0 mm Hg ---- Peak grad, S 6 mm Hg Mean grad, S 3 mm Hg Tricuspid valve Value Ref Peak RV-RA grad, S 23 mm Hg ---- Ventricular septum Value Ref Max TR chaparrita 2.4 m/sec ---- IVS, ED (H) 1.0 cm 0.6 - 0.9 Aortic root Value Ref Right ventricle Value Ref Root diam 2.3 cm <3.9 ASMITA, LAX 3.1 cm ASMITA minor ax, A4C 2.5 cm 1.9 - 3.5 Ascending aorta Value Ref mid AAo AP diam, S 3.2 cm ---- Pressure, S 26 mm Hg Aortic arch Value Ref Left atrium Value Ref Arch diam 2.2 cm ---- AP dim, ES 2.80 cm 2.70 - 3.80 Decending aorta Value Ref ML dim, A4C 4.0 cm Hank peak chaparrita 0.72 m/sec ---- SI dim, A4C 4.6 cm Vol/bsa, ES, 1-p 30 ml/m^2 11 - 40 Pulmonary artery Value Ref A4C Pressure, S 26.0 mm Hg ---- Vol/bsa, ES, A/L (H) 35 ml/m^2 16 - 34 Inferior vena cava Value Ref Right atrium Value Ref Diam 1.8 cm ---- ML dim, ES, A4C 3.7 cm 2.6 - 4.4 SI dim, ES, A4C 4.2 cm 3.4 - 5.3 Estimated RAP 3 mm Hg Legend: (L) and (H) juan values outside specified reference range. Prepared and electronically signed by Jesse Junior MD 10/14/2019 10:34
--- NOTE | 2019-10-14 14:01 | PN ---
NEUROLOGICAL FOLLOWUP NOTE: DATE OF SERVICE: 10/13/19 HISTORY: Neurological followup note of a telestroke consult done by Dr. Hapmton yesterday. I reviewed the history in detail. She is a 69-year-old right- handed woman who, at roughly 12 p.m. yesterday, developed a throbbing in her head and then developed tingling and numbness in the face below her eye. Dr. Hampton got the history at that time that it was in her right hand, but she notes that she had no numbness in either hand, but when she came to the ER both hands were cold. There was no tingling in either hand, either there was no visual loss. There was some lightheadedness. She still has some feeling of tingling in her face below her eye. She had an immediate stroke workup in the ER including an NIH Stroke Scale of 1 and was not given tPA because of her good clinical status. Her CT scan which I reviewed was normal. She quit smoking about 20 years ago and she has a history of hypertension and atrial fibrillation. The atrial fibrillation was recently diagnosed. She had history of breast implants. She drinks alcohol socially and does not use drugs. There is coronary artery disease in the parents. She also takes B12 for B12 deficiency. She has had tick bites, but no history of Lyme. MEDICATIONS AT HOME: Include: 1. Ramipril 1.25 daily. 2. Vitamin D 800 mg daily. 3. Cyanocobalamin 500 mcg daily. ALLERGIES: Include ALBUTEROL. REVIEW OF SYSTEMS: Negative in all 14 spheres other than HPI. PHYSICAL EXAMINATION: Temperature 98.4, pulse 60, respirations 16, blood pressure 131/72. She is alert and oriented with normal speech and comprehension. Cranial nerves II through XII were normal other than she had a slight altered sensation to the right side of her face below her eye in V2-V3 distribution. She also had a decreased nasolabial fold on that side compared to the left, but this was very subtle. Motor exam revealed normal tone and strength. Negative pronator drift. Negative drift in either leg. Reflexes were 1+ and equal with downgoing toes. Neck was supple. Chest was clear. Cardiovascular: Regular rate and rhythm. Abdomen was soft with positive bowel sounds. DIAGNOSTIC STUDIES/LAB DATA: Her CT scan was reviewed and was normal. Her CTA did not show any significant stenosis or occlusion. Her neck CTA showed some mild stenosis in left internal carotid. Her echo showed no PFO or clear source of clot. CBC was normal. Normal INR and PTT. Normal CMP. LDL was 141. Hemoglobin A1c was 5.5. IMPRESSION AND PLAN: Lizett's symptoms were most consistent with a transient ischemic attack or minor stroke. She still has symptoms today in her face and we would hold off a little bit longer giving her anticoagulation and we will be obtaining a MRI scan tomorrow and then proceeding from there. The history is a little unclear. Yesterday, she said she had numbness in her right hand and face , which would mean that this was definitely a minor stroke and I call it a stroke since she still has symptoms in her face; however, she says to me today that her right hand was not numb and her both hands were cold, so it is unclear to me whether this related to her facial numbness and tingling. It is possible that this could represent some minor cranial nerve abnormality and with her history of tick bites, I am going to be checking Lyme titers, but I would proceed with workup and plan is if her Lyme titer became positive then we would have to reassess whether the most likely diagnosis was central nervous system ischemic disease. [id number]/[facility] #: [id number] MARGOTH
--- NOTE | 2019-10-14 15:38 | PN ---
Subjective Date of Service: 10/14/19 Interval History: Reports improvement in face tingling. Recently dx with Paroxysmal A fib this Mon Objective Active Medications: Acetaminophen (Tylenol Tab*) 650 mg PO Q4H PRN PRN Reason: MILD PAIN or TEMP > 100.4 Aspirin (Aspirin Tab*) 325 mg PO DAILY [facility] Last Admin: 10/14/19 08:52 Dose: 325 mg Atorvastatin Calcium (Lipitor*) 40 mg PO 1700 [facility] Last Admin: 10/13/19 19:28 Dose: Not Given Cholecalciferol (Vitamin D Tab*) 800 unit PO DAILY [facility] Last Admin: 10/14/19 08:52 Dose: 800 unit Cyanocobalamin (Vitamin B12 Tab*) 500 mcg PO DAILY [facility] Last Admin: 10/14/19 08:52 Dose: 500 mcg Heparin Sodium (Porcine) (Heparin Vial(*)) 5,000 units SUBCUT Q8HR [facility] Last Admin: 10/14/19 13:02 Dose: Not Given Ondansetron HCl (Zofran Inj*) 4 mg IV Q6H PRN PRN Reason: NAUSEA/VOMITING Vital Signs - 8 hr 10/14/19 10/14/19 08:00 11:15 Temperature 98.4 F Pulse Rate 60 Respiratory 16 Rate Blood Pressure 131/72 (mmHg) O2 Sat by Pulse 97 96 Oximetry Oxygen Devices in Use Now: None Eyes: No Scleral Icterus Ears/Nose/Mouth/Throat: NL Teeth, Lips, Gums Neck: NL Appearance and Movements; NL JVP Respiratory: Symmetrical Chest Expansion and Respiratory Effort, Clear to Auscultation Cardiovascular: NL Sounds; No Murmurs; No JVD Lymphatic: No Cervical Adenopathy Extremities: No Edema Skin: No Rash or Ulcers Neurological: Alert and Oriented x 3, - - cranial nerves 2-12 intact. good strength bilateral upper and lower ext. Gait not tested Result Diagrams: 10/13/19 14:20 10/14/19 05:59 Assess/Plan/Problems-Billing Assessment: - Patient Problems (1) TIA (transient ischemic attack) Current Visit: Yes Status: Acute Code(s): G45.9 - TRANSIENT CEREBRAL ISCHEMIC ATTACK, UNSPECIFIED SNOMED Code(s): 906266707 Comment: symptoms c/w TIA\ Echo with no PFO. EF 50-55% -Appreciate neuro input -Follow up in am -CTA head neck wnl -MRI pending (2) Paroxysmal A-fib Current Visit: Yes Status: Acute Code(s): I48.0 - PAROXYSMAL ATRIAL FIBRILLATION SNOMED Code(s): 255267780 Comment: Sinus currently CHADS score now higher with her TIA Discussed anticoagulation in detail with the pt Pt is going to think about it. Reports that she has reactions to multiple medications and her mother was on coumadin and then pradexa And will wait on her workup Continue Aspirin 325 mg (3) Hypertension Current Visit: Yes Status: Acute Code(s): I10 - ESSENTIAL (PRIMARY) HYPERTENSION SNOMED Code(s): 79139934 Comment: Only on lisinopril 1.25 mg Currently on hold Reports that she had tingling symptoms and did not tolerate lisinopril initially and hence is on the low dose (4) B12 deficiency Current Visit: Yes Status: Acute Code(s): E53.8 - DEFICIENCY OF OTHER SPECIFIED B GROUP VITAMINS SNOMED Code(s): 321078642 Comment: continue supplementation check level Status and Disposition: PT/OT evaluation
[2019-10-14] MEDS: Atorvastatin* 40 MG TAB PO SCH (16:43)
[2019-10-15] MEDS: Heparin VIAL(*) 5000 UNITS/ML VIAL (FIVE THOUSAND) SUBCUT SCH ×2 (05:45→13:19)
[2019-10-15] MEDS: Cyanocobalamin TAB* 500 MCG PO SCH (08:10)
[2019-10-15] MEDS: Cholecalciferol TAB* 400 UNIT PO SCH (08:10)
[2019-10-15] MEDS: Aspirin TAB* 325 MG PO SCH (08:10)
[2019-10-15 11:47] VITALS: BP 147/79
--- NOTE | 2019-10-15 15:09 | PN ---
NEUROLOGICAL FOLLOWUP: DATE OF VISIT: 10/15/19 PATIENT OF: Dr. Wen. HISTORY: This is a 69-year-old woman seen in followup. She notes that her numbness and tingling have resolved and she is asymptomatic at this point. She has no new issues. She is on her Lipitor, B12. Her aspirin is being discontinued and she has been put on Eliquis. PHYSICAL EXAMINATION: Temperature 98.1, pulse 61, respirations 16, blood pressure 147/79. She is alert and oriented with normal speech and comprehension. Cranial nerves II through XII were intact. Motor exam revealed normal tone, strength and gait. Chest was clear. Cardiovascular: Regular rate and rhythm. DIAGNOSTIC STUDIES/LAB DATA: I reviewed her MRI scan, which showed no acute stroke and did show some white matter disease. I agreed with radiologist that this was mild microvascular finding. IMPRESSION AND PLAN: I discussed this with Dr. Wen that I think that TIA is the most likely diagnosis based on the initial history of right hand and facial numbness. This is obtained by Griffith. My history day later was little bit less clear but still could be TIA and that treating with Eliquis is most reasonable given her atrial fibrillation. She only has mild microvascular disease on her MRI scan and her CTA does not show significant atherosclerotic disease, so I think that atherosclerotic issues are less likely a cause for her TIA and I would have her on just the Eliquis by itself. Lyme titers have been sent since, from my history, the main symptom was facial numbness, but this has resolved and I think that Lyme disease is conceivable but unlikely. Thank you for sharing her case. [id number]/[facility] [place] [id number] MARGOTH
--- NOTE | 2019-10-15 15:09 | DS ---
ADDENDUM NOW INCLUDED ON THIS REPORT CC: Dr. Díaz * DISCHARGE SUMMARY: DATE OF ADMISSION: 10/13/19 DATE OF DISCHARGE: 10/15/19 PRIMARY CARE PROVIDER: Dr. Díaz. DISPOSITION ON DISCHARGE: Home. CONDITION ON DISCHARGE: Good. PRIMARY DIAGNOSIS: Transient ischemic attack. SECONDARY DIAGNOSES: Include: 1. Atrial fibrillation. 2. Hypertension. MEDICATIONS AT DISCHARGE: Include: 1. Vitamin B12 500 mcg daily. 2. Cholecalciferol 800 daily. 3. Ramipril 1.25 mg daily. 4. Atorvastatin 40 mg in the evening. 5. Aspirin 81 mg daily. 6. Eliquis 5 mg twice daily. Please note the addition of aspirin, Eliquis, and atorvastatin. Please note, the patient does not want to start Lipitor until discussing with Dr. Díaz or Dr. García, but prescriptions were prescribed. PERTINENT LABORATORY DATA: Total cholesterol 238, LDL 141, HDL was 82. Hemoglobin A1c is 5.5%. PERTINENT IMAGING: Brain MRI: MRI findings are most consistent with mild scattered microvascular disease and otherwise normal MRI of the brain. Head CTA: Normal head CTA. Transthoracic echocardiogram: LVEF is 55% to 60%. Wall thickness is mildly increased. No patent foramen ovale is identified. Trace MR, trace to mild TR. HISTORY OF PRESENT ILLNESS AND HOSPITAL COURSE: This is a 69-year-old female with past medical history as outlined in the history of presenting illness on the day of admission, presented to the hospital with tingling in her right face and right hand followed by dizziness. Later, she described the right hand as less tingling and more of a numbness. On her evaluation with Dr. Blanco on , she persisted to have some right facial tingling below her eye, which resolved at the time of discharge. She was neurologically intact with 0 remaining symptoms at the time of discharge. Diagnosis of TIA was made in the setting of transient neurological findings in the absence of MRI correlate of a stroke. Of note, Dr. Blanco was concerned for possible involvement of Lyme disease and at this time Lyme disease immune antibodies are pending. Long discussion was had with the patient regarding initiation of anticoagulant in the setting of atrial fibrillation and TIA. The patient elected starting anticoagulant at this time. We discussed Eliquis, which she is comfortable with. A prescription was sent to her pharmacy of choice. We discussed at length risks as well as signs to be cognizant of now that she is on a blood thinner. At followup, please: 1. Follow up on Lyme immunochemistries. 2. We would continue advocate for Lipitor in the setting of hyperlipidemia and new TIA. 3. No other specific labs or vitals that need followup. Reasons to return to the hospital including, but are not limited to recurrent or worsening symptoms including asymmetric paresthesias or weakness, changes in her vision, headache, nausea, vomiting, lightheadedness, loss of consciousness or near loss of consciousness, bright red blood per rectum or dark black stool, bleeding from any other source were discussed with the patient. TIME SPENT: Greater than 90 minutes was spent on the discharge of the patient, greater than half was spent [id number] with the patient. ADDENDUM: Further discussion with Neurology, Dr. Blanco, who was consulting on this patient, had seen her the day before discharge. Medications on discharge will not include aspirin 81 mg daily as to minimize risk of bleeding. [id number]/[facility] #: [id number] A- [id number]/[facility] #: [id number] MARGOTH
--- NOTE | 2019-10-15 22:30 | DS ---
DISCHARGE SUMMARY: ADDENDUM: Further discussion with Neurology, Dr. Blanco, who was consulting on this patient, had seen her the day before discharge. Medications on discharge will not include aspirin 81 mg daily as to minimize risk of bleeding. [id number]/[facility] #: [id number] MTDD
== END 2019-10-15 13:45 | disposition home or self-care (01) ==
LOC: ED 13:51 → MEDTELE 16:44
PROVIDERS: ADMIT Internal Medicine; ATTEND Internal Medicine
DX: G45.9 Transient cerebral ischemic attack, unspecified (principal); I48.0 Paroxysmal atrial fibrillation; R20.0 Anesthesia of skin; J45.909 Unspecified asthma, uncomplicated; I10 Essential (primary) hypertension; Z79.82 Long term (current) use of aspirin; Z79.01 Long term (current) use of anticoagulants; Z79.899 Other long term (current) drug therapy
CPT/HCPCS: 36415; 70450; 70496; 70498; 70551; 71045; 80048; 80053; 80061; 81003; 82607; 83036; 83605; 83735; 84484; 85025; 85610; 85730; 86617; 93005; 93306; 96360; 96372; 99285; A9270-GY; G0378; G8978-GP-CH; G8979-GP-CH; G8980-GP-CH; J1644; Q9967

== ENCOUNTER 2023-12-18 11:54 | Inpatient (IN) ==
[~2023-12-18 11:54] MED LIST: Iodixanol (CONTRAST) 320 MG/ML 100 ML SDV IV ONE
[2023-12-18 12:15] LABS: ABS Lymphocytes 1.7 10^3/uL (1.0-4.8); ABS Monocytes 0.3 10^3/uL (0.0-0.9); ABS Neutrophils 3.1 10^3/uL (1.5-7.6); Eosinophil % 0.2 %; Hematocrit 43.3 % (35-45); Hemoglobin 14.9 g/dL (11.5-14.3); Lymphocyte % 33.6 %; Mean Corpuscular Hemoglobin 32.2 pg (27-33); Mean Corpuscular Hgb Conc 34.3 g/dL (31-36); Mean Corpuscular Volume 93.8 fL (80-97); Mean Platelet Volume 7.8 fL (7.5-11.2); Nucleated Red Blood Cells % 0.1 %/100WBC (0.0-0.8); Platelet Count 193 10^3/uL (150-450); Red Blood Count 4.62 10^6/uL (3.63-4.92); Red Cell Distribution Width 13.9 % (12-17); White Blood Count 5.2 10^3/uL (3.8-11.8)
[2023-12-18 12:30] LABS: Activated Partial Thrombo Time 34.4 seconds (26.0-38.0); INR 1.24 (0.83-1.13)
[2023-12-18 12:36] LABS: Albumin 4.4 g/dL (3.2-5.2); Albumin/Globulin Ratio 1.8 (1-3); Calcium 9.2 mg/dL (8.6-10.3); Creatinine, Serum 0.84 mg/dL (0.51-0.95); Direct Bilirubin 0.1 mg/dL (0.03-0.18); Globulin 2.4 g/dL (2-4); HDL Cholesterol 110.5 mg/dL; Indirect Bilirubin 0.6 mg/dL (0.3-1.0); Total Bilirubin 0.7 mg/dL (0.2-1.0); Total Protein 6.8 g/dL (6.4-8.9); eGFR CKD-EPI 74.2 (>60)
[2023-12-18 13:00] LABS: Urine Appearance Clear; Urine Bilirubin Negative (Negative); Urine Blood Negative (Negative); Urine Color Straw; Urine Glucose Negative (Negative); Urine Ketones Negative (Negative); Urine Nitrite Negative (Negative); Urine Protein Negative (Negative); Urine Specific Gravity 1.018 (1.002-1.030); Urine Urobilinogen Negative (Negative)
[2023-12-18 13:14] LABS: Rapid COVID-19 Molecular Undetected (Undetected)
[2023-12-18 13:15] LABS: Influenza A Molecular Negative (Negative); Influenza B Molecular Negative (Negative)
[2023-12-18] MEDS ORDERED: Labetalol IV 5 MG/ML 20 ml VIAL IV PUSH PRN (13:26)
[2023-12-18] MEDS: Cholecalciferol (VIT D3) 400 units TAB PO SCH (20:49)
[2023-12-19] MEDS: Aspirin EC 81 mg TAB.EC (enteric coated) PO SCH (08:02)
[2023-12-19] MEDS ORDERED: Gadoteridol (CONTRAST) 279.3 MG/ML 10 ML IV ONE (21:02)
[2023-12-19] MEDS: Cholecalciferol (VIT D3) 400 units TAB PO SCH (21:43)
[2023-12-20] MEDS: Aspirin EC 81 mg TAB.EC (enteric coated) PO SCH (07:47)
[2023-12-20 14:33] VITALS: BP 165/85
== END 2023-12-20 16:01 | disposition home or self-care (01) | DRG 66 ==
LOC: ED 11:54 → SUATTDRO 12:44 → EDHOLD 12:44 → MEDTELE 13:52
PROVIDERS: ADMIT Student in an Organized Health Care Education/Training Program; ATTEND Hospitalist

== ENCOUNTER 2024-01-09 23:10 | Observation (INO) ==
[2024-01-10 00:20] LABS: ABS Lymphocytes 1.6 10^3/uL (1.0-4.8); ABS Monocytes 0.4 10^3/uL (0.0-0.9); ABS Neutrophils 2.7 10^3/uL (1.5-7.6); Eosinophil % 0.7 %; Lymphocyte % 34.1 %; Mean Corpuscular Hgb Conc 34.1 g/dL (31-36); Mean Platelet Volume 7.8 fL (7.5-11.2); Nucleated Red Blood Cells % 0.1 %/100WBC (0.0-0.8); Platelet Count 196 10^3/uL (150-450); Red Blood Count 4.67 10^6/uL (3.63-4.92); Red Cell Distribution Width 13.7 % (12-17); White Blood Count 4.7 10^3/uL (3.8-11.8)
[2024-01-10 00:39] LABS: Albumin 4.1 g/dL (3.2-5.2); Albumin/Globulin Ratio 1.9 (1-3); Calcium 8.9 mg/dL (8.6-10.3); Creatinine, Serum 0.9 mg/dL (0.51-0.95); Globulin 2.2 g/dL (2-4); Total Bilirubin 0.3 mg/dL (0.2-1.0); Total Protein 6.3 g/dL (6.4-8.9); eGFR CKD-EPI 68.3 (>60)
[2024-01-10 12:50] VITALS: BP 162/76
== END 2024-01-10 12:45 | disposition home or self-care (01) ==
LOC: ED 23:10 → EDHOLD 23:10
PROVIDERS: ADMIT Internal Medicine; ATTEND Internal Medicine